=== PATIENT | female | born 1960 | race Two or more races ===

== ENCOUNTER → 2023-12-18 09:33 | Outpatient (CLI) | payer OTHER ==
[2023-12-18 11:16] LABS: HEMATOCRIT 37.6 % (36.0-45.00); MEAN CELL VOLUME 101.4 fL (80.00-100.00); MEAN CORPUSCULAR HEMOGLOBIN 34.9 pg (27.00-32.0); MEAN CORPUSCULAR HGB CONC 34.4 g/dl (32.0-36.0); PH,URINE 7.5 (5.0-8.0); PLATELET COUNT 143 K/uL (150-450); RED BLOOD COUNT 3.71 M/uL (4.00-6.00); RED CELL DISTRIBUTION WIDTH 13.1 % (11.5-14.5); URINE APPEARANCE Clear; URINE BILIRRUBIN Negative (NEGATIVE); URINE BLOOD Negative; URINE COLOR Yellow; URINE GLUCOSE Negative (NEGATIVE); URINE LEUKOCYTE Trace; URINE NITRATE Negative; URINE PROTEIN Negative (NEGATIVE); URINE UROBILINOGEN 0.2 E.U./dl
[2023-12-18 11:20] LABS: URINE EPITHELIAL CELLS 15.2 uL (0.0-38.8); URINE RBC 3.2 uL (0.0-20.8)
[2023-12-18 12:16] LABS: ALBUMIN 3.2 gm/dL (3.4-5.0); BILIRUBIN TOTAL 0.32 mg/dL (0.3-1.2); CHOL HDL RATIO 2.7 (0-5.0); CREATININE SERUM 0.68 mg/dL (0.55-1.02); GFR 87.11; GLOBULINA 3.9 G/DL (2.4-3.5); POTASSIUM 4.28 mEq/L (3.5-5.1); TOTAL PROTEIN 7.1 gm/dL (6.4-8.2); TSH 2.04 uIU/mL (0.358-3.74)
[2023-12-18 12:19] LABS: T4 TOTAL 15.05 UG/DL (4.8-13.9)
== END | disposition home or self-care (01) ==
LOC: LAB 09:33
DX: E03.9 Hypothyroidism, unspecified (principal); E66.9 Obesity, unspecified; E78.2 Mixed hyperlipidemia

== ENCOUNTER 2023-12-26 11:41 | Outpatient (CLI) | payer OTHER ==
[2023-12-26 12:55] LABS: ob NEGATIVE (NEGATIVE)
== END 2023-12-26 23:00 | disposition home or self-care (01) ==
LOC: LAB 11:41
DX: E78.2 Mixed hyperlipidemia (principal); E03.9 Hypothyroidism, unspecified; E66.9 Obesity, unspecified

== ENCOUNTER 2024-02-22 09:37 | Outpatient (CLI) | payer OTHER | END 2024-02-22 09:46 | disposition home or self-care (01) | LOC: MAMO-SONO 09:37 | DX: N64.4 Mastodynia (principal); N63.20 Unspecified lump in the left breast, unspecified quadrant; D25.1 Intramural leiomyoma of uterus ==

== ENCOUNTER 2024-02-22 12:26 | Outpatient (CLI) | payer OTHER | END 2024-02-22 12:28 | disposition home or self-care (01) | LOC: NUCLEAR 12:26 | PROVIDERS: ATTEND Obstetrics & Gynecology | DX: M85.80 Other specified disorders of bone density and structure, unspecified site (principal); M81.0 Age-related osteoporosis without current pathological fracture ==

== ENCOUNTER → 2024-03-30 08:54 | Outpatient (CLI) | payer OTHER | END | disposition home or self-care (01) | LOC: NUCLEAR 08:54 | PROVIDERS: ATTEND General Practice | DX: I87.2 Venous insufficiency (chronic) (peripheral) (principal) ==

== ENCOUNTER 2024-03-30 09:13 | Outpatient (CLI) | payer OTHER ==
[2024-03-30 11:21] LABS: ob POSITIVE (NEGATIVE)
== END 2024-03-30 09:23 | disposition home or self-care (01) ==
LOC: LAB 09:13
PROVIDERS: ATTEND General Practice
DX: K62.5 Hemorrhage of anus and rectum (principal)

== ENCOUNTER 2025-01-11 06:46 | Outpatient (CLI) | payer OTHER ==
[2025-01-11 07:38] LABS: BASO % 0.6 % (0.1-1.2); EOS # 0.05 (0.04-0.54); EOS % 0.7 % (0.7-7.0); LYMPH # 4.88 (1.18-3.74); LYMPH % 71.2 % (19.3-53.1); MEAN PLATELET VOLUME 11.40 fl (9.4-12.4); MONO # 0.44 (0.24-0.82); MONO % 6.4 % (4.7-12.5); NEUT # 1.43 (1.56-6.13); NEUT % 21.0 % (34.0-71.1); RED CELL DISTRIBUTION WIDTH 12.4 % (11.6-14.4)
[2025-01-11 07:58] LABS: URINE APPEARANCE Clear; URINE BILIRRUBIN Negative (NEGATIVE); URINE BLOOD Negative; URINE COLOR Yellow; URINE GLUCOSE Negative (NEGATIVE); URINE KETONE Negative (NEGATIVE); URINE LEUKOCYTE Small; URINE NITRATE Negative; URINE PROTEIN Negative (NEGATIVE); URINE UROBILINOGEN 0.2 E.U./dl
[2025-01-11 08:02] LABS: URINE BACTERIA 26.3 uL (0.0-1933); URINE EPITHELIAL CELLS 5.5 uL (0.0-38.8); URINE RBC 3.6 uL (0.0-20.8); URINE WBC 15.9 uL (0.0-23.2)
[2025-01-11 08:03] LABS: URINE CAST 0.00 uL (0.0-1.40)
[2025-01-11 08:55] LABS: ALT/SGPT 28.0 U/L (12-78); AST/SGOT 32.0 U/L (15-37); BILIRUBIN TOTAL 0.52 mg/dL (0.3-1.2); BUN CREA RATIO 21.0 (7.0-25.0); CHOL HDL RATIO 2.6 (0-5.0); CREATININE SERUM 0.77 mg/dL (0.55-1.02); GFR 75.23; GLOBULINA 4.1 G/DL (2.4-3.5); GLUCOSE FASTING 88.0 mg/dL (65-100); HDL 63.0 mg/dl (40-60); LDL 78.0 mg/dl (0-130); OSMOLALITY SERUM 280.0 MOSM/KG (275-295); VLDL 24.0 (0-39)
[2025-01-11 09:06] LABS: TSH 6.97 uIU/mL (0.358-3.74)
[2025-01-11 10:32] LABS: VITAMIN D3 25 HYDROXY 28.86 ng/ml (30-120)
== END 2025-01-11 06:51 | disposition home or self-care (01) ==
LOC: LAB 06:46
PROVIDERS: ATTEND General Practice
DX: D64.9 Anemia, unspecified (principal); N39.0 Urinary tract infection, site not specified; K76.0 Fatty (change of) liver, not elsewhere classified; E11.51 Type 2 diabetes mellitus with diabetic peripheral angiopathy without gangrene; Z12.11 Encounter for screening for malignant neoplasm of colon; A43.9 Nocardiosis, unspecified; R50.9 Fever, unspecified; E03.8 Other specified hypothyroidism; E78.2 Mixed hyperlipidemia; N28.9 Disorder of kidney and ureter, unspecified; D69.9 Hemorrhagic condition, unspecified; E55.9 Vitamin D deficiency, unspecified; E21.3 Hyperparathyroidism, unspecified; Z20.822 Contact with and (suspected) exposure to COVID-19; R05.1 Acute cough; I10 Essential (primary) hypertension; A64 Unspecified sexually transmitted disease; R97.8 Other abnormal tumor markers

== ENCOUNTER 2025-01-16 07:10 | Outpatient (CLI) | payer OTHER ==
[2025-01-16 12:22] LABS: ob NEGATIVE (NEGATIVE)
== END 2025-01-16 07:16 | disposition home or self-care (01) ==
LOC: LAB 07:10
PROVIDERS: ATTEND General Practice
DX: D64.9 Anemia, unspecified (principal); N39.0 Urinary tract infection, site not specified; K76.0 Fatty (change of) liver, not elsewhere classified; E11.51 Type 2 diabetes mellitus with diabetic peripheral angiopathy without gangrene; Z12.11 Encounter for screening for malignant neoplasm of colon; A53.9 Syphilis, unspecified; D50.9 Iron deficiency anemia, unspecified; E03.9 Hypothyroidism, unspecified; E78.2 Mixed hyperlipidemia; N28.9 Disorder of kidney and ureter, unspecified; E21.3 Hyperparathyroidism, unspecified; R50.9 Fever, unspecified; E55.9 Vitamin D deficiency, unspecified; R05.1 Acute cough; I10 Essential (primary) hypertension; A64 Unspecified sexually transmitted disease